=== PATIENT | male | born 1950 | race Caucasian/White ===

== ENCOUNTER 2017-12-01 09:11 | Day surgery (SDC) | payer OTHER ==
[~2017-12-01 09:11] MED LIST: Cataract Ophth Solution EYERT ONE; Lidocaine 4% 5 ML Amp EYERT ONE; Moxifloxacin 0.5% Ophth Soln 3 ML Bottle EYERT ONE; Sodium Chloride 0.9% 10 ML Syringe FLUSH PRN
[2017-12-01] MEDS ORDERED: Cyclopentolate 2% Ophth Soln 5 ML Bottle EYERT ONE (10:59)
[2017-12-01] MEDS ORDERED: Lidocaine 4% 5 ML Amp EYERT ONE (11:47)
[2017-12-01] MEDS ORDERED: Povidone-Iodine 5% Sterile Ophth Soln 30 ML Bottle EYERT ONE (11:48)
[2017-12-01] MEDS ORDERED: Lidocaine 1% 30 ML SDV INJECT ONE (11:54)
[2017-12-01] MEDS ORDERED: Balanced Salt Solution Ophth Irrig 500 ML Bottle IOCULAR ONE (11:55)
[2017-12-01] MEDS ORDERED: EPINEPHrine 1 MG/ML SDV ONE (11:55)
[2017-12-01] MEDS ORDERED: prednisoLONE Acetate 1% Ophth Susp 5 ML Bottle EYERT ONE (12:16)
[2017-12-01] MEDS ORDERED: Moxifloxacin 0.5% Ophth Soln 3 ML Bottle EYERT ONE (12:16)
--- NOTE | 2017-12-01 12:23 | PCM.OPNOTE ---
- General Post-Op/Procedure Note Date of Surgery/Procedure: 12/01/17 Operative Procedure(s): Cataract extraction with intraocular lens implant, right eye Findings: As below Pre Op Diagnosis: Combined forms of age-related cataract right eye Post-Op Diagnosis: Same Anesthesia Technique: Local Primary Surgeon: Chele Park Pathology: None EBL in mLs: 0 Complications: None Condition: Good Free Text/Narrative:: PROCEDURE: After the risks and benefits of the procedure were explained informed consent was obtained from the patient and the patient was taken to the operating room. The patient was given topical Lidocaine 4% drops in the right eye. The patient was then prepped and draped in the sterile [facility] fashion. A wire lid speculum was placed in the right eye. A clear cornea temporal approach was used. A 7515 [address] blade was used to make a paracentesis site around 11:00. Preservative-free Lidocaine 1% was injected intracamerally. Viscoelastic was placed in the anterior chamber. A 2.5 mm keratome blade was used to make a clear corneal incision around 9:00. A cystotome needle and Utrata forceps were used to perform continuous curvilinear capsulorhexis. Balanced Salt Solution was used to perform hydrodissection and hydrodelineation. The lens nucleus was removed using the divide and conquer phacoemulsification technique. Cumulative dissipated energy was 11.31. Remaining cortex was removed using irrigation- aspiration. Viscoelastic was placed in the capsular bag. PCBOO 20.0 diopter lens was then placed in the capsular bag. Remaining viscoelastic was removed using irrigation-aspiration. The lens was well centered in the capsular bag. The paracentesis and corneal incision were found to be water-tight. The patient was given topical Prednisolone and Vigamox drops. The speculum was removed and a shield was placed over the right eye. The patient was taken to recovery in stable condition. I certify that I was present for and performed the entire operative procedure. Chele Park M.D.
== END 2017-12-01 12:35 | disposition home or self-care (01) ==
LOC: DL.SDS 09:11
PROVIDERS: ATTEND Ophthalmology
DX: E11.36 Type 2 diabetes mellitus with diabetic cataract (principal); H25.811 Combined forms of age-related cataract, right eye; J44.9 Chronic obstructive pulmonary disease, unspecified; G47.33 Obstructive sleep apnea (adult) (pediatric); E78.2 Mixed hyperlipidemia; Z87.891 Personal history of nicotine dependence; Z79.4 Long term (current) use of insulin; Z79.82 Long term (current) use of aspirin; Z79.899 Other long term (current) drug therapy; Z88.0 Allergy status to penicillin; Z88.8 Allergy status to other drugs, medicaments and biological substances
CPT/HCPCS: 66984; A9270; J0171; J7050; V2632